=== PATIENT | female | born 1940 | race Caucasian/White ===

== ENCOUNTER 2018-07-24 14:34 | Observation (INO) | payer OTHER ==
--- NOTE | 2018-07-24 15:01 | EDPHY ---
H & P Time Seen by Provider: 07/24/18 14:53 HPI/ROS: Chief complaint. Heart fluttering HPI. Patient is 78-year-old female who presents with near-syncope twice today. She tells me over the past 6-8 months she has noticed that the systolic blood pressure has been elevated. She has been evaluated at [facility] for this. No etiology found or change of treatment found. Over the past [address] she has experienced episodes where her heart seems to flutter and beat quickly for several seconds. The last 2 days she has had episodes where she has been lightheaded to the point where she needs to sit down. Twice today this occurred while she was sitting at a computer. Again she describes her heart is beating fast and fluttering. She denies however chest discomfort, shortness of breath, fever, cough. No abdominal pain or nausea vomiting or diarrhea. No unusual leg pain or swelling. She is quite active normally and does not have symptoms when she is active. She has [facility] insurance but she felt uncomfortable driving to [facility] or sitting in the waiting room at of the [facility] outpatient. ROS 10 systems were reviewed and negative with the exception of the elements mentioned in the history of present illness Past Medical/Surgical History: Past medical history is significant for dyslipidemia Family history both parents had NE and at age 79 Social History: , nonsmoker, no alcohol Smoking Status: Never smoked Physical Exam: General Appearance: Alert well-developed female mild distress. Vital signs are stable. Blood pressure 169/60 Eyes: Pupils equal and round no pallor or injection. ENT, Mouth: Mucous membranes are moist. Respiratory: There are no retractions, lungs are clear to auscultation. Cardiovascular: Regular rate and rhythm. Gastrointestinal: Abdomen is soft and nontender, no masses, bowel sounds normal. Neurological: Awake and alert, sensory and motor exams grossly normal. Skin: Warm and dry, no rashes. Musculoskeletal: Neck is supple nontender. Extremities symmetrical, full range of motion. Psychiatric: Patient is oriented X 3, there is no agitation. Constitutional: Initial Vital Signs Temperature (C) 36.4 C 07/24/18 14:41 Heart Rate 66 07/24/18 14:41 Respiratory Rate 16 07/24/18 14:41 Blood Pressure 169/60 H 07/24/18 14:41 O2 Sat (%) 98 07/24/18 14:41 O2 Delivery Mode Room Air Allergies/Adverse Reactions: Sulfa (Sulfonamide Antibiotics) [Sulfa(Sulfonamide Antibiotics)] Allergy ( Verified 07/24/18 14:41) Home Medications: Medication Instructions Recorded Atorvastatin Calcium [Lipitor 20 20 mg PO DAILY 03/17/12 mg (RX)] Chlorpheniramine Maleate 12 mg PO Q4 PRN 03/17/12 [Chlor-Trimeton Allergy] Glucosamine Sulfate Dipot Chlr 1,000 mg PO DAILY 03/17/12 [Glucosamine] Ibuprofen [Advil] 400 mg PO DAILY PRN 03/17/12 Multivitamins [Multivitamin (OTC)] 1 each PO DAILY 03/17/12 [place]-3 Fatty Acids/Fish Oil [Fish 1 each PO DAILY 03/17/12 Oil 1,000 mg Capsule] Pharmacy Completed See Comment 03/17/12 03/17/12 diphenhydrAMINE [Benadryl 25 MG 25 mg PO HS PRN 03/17/12 (OTC)] Estradiol/Norethindrone Acet 1 each PO DAILY 03/18/12 [Activella 1 Mg-0.5 Mg Tablet] Medical Decision Making - Diagnostics EKG Interpretation: EKG interpreted by me shows normal sinus rhythm normal interval and axis. QRS is normal. There is slight ST depression in the anterior lateral leads as well as inferior leads. There is evidence the atrial flutter with extra P waves in some segments between the QRS complexes. The rate is 60 Imaging Results: Imaging Impressions Chest X-Ray 07/24/18 15:26 Impression: Negative portable chest. Procedures: IV normal saline, monitor ED Course/Re-evaluation: On re-evaluation patient is stable. She and I discussed EKG findings in changes. We discussed lab work. We discussed recommendation for admission. She expresses understanding and agreement Patient has [employer] insurance. I discussed the case with [employer] ECM are fine with keeping the patient here. I consulted discussed case with Dr. Lyn, hospitalist who agrees to the admission Differential Diagnosis: Healthy woman without previous heart problems though strong family history presents with near syncope and EKG findings. Her troponin is 0. There is some suggestion that there could be developing atrial fib/flutter. I considered dysrhythmias as well as acute coronary syndrome. - Data Points Laboratory Results: Laboratory Results 07/24/18 14:55 07/24/18 14:55 07/24/18 07/24/18 07/24/18 14:58 14:55 14:55 WBC 8.56 10^3/uL 10^3/uL (3.80-9.50) RBC 4.91 10^6/uL 10^6/uL (4.18-5.33) Hgb 14.4 g/dL g/dL (12.6-16.3) Hct 44.1 % % (38.0-47.0) MCV 89.8 fL fL (81.5-99.8) MCH 29.3 pg pg (27.9-34.1) MCHC 32.7 g/dL g/dL (32.4-36.7) RDW 13.2 % % (11.5-15.2) Plt Count 270 10^3/uL 10^3/uL (150-400) MPV 10.9 fL fL (8.7-11.7) Neut % (Auto) 61.3 % % (39.3-74.2) Lymph % (Auto) 30.5 % % (15.0-45.0) [place] % (Auto) 5.0 % % (4.5-13.0) Eos % (Auto) 1.9 % % (0.6-7.6) Baso % (Auto) 1.1 % % (0.3-1.7) Nucleat RBC Rel Count 0.0 % % (0.0-0.2) Absolute Neuts (auto) 5.25 10^3/uL 10^3/uL (1.70-6.50) Absolute Lymphs (auto) 2.61 10^3/uL 10^3/uL (1.00-3.00) Absolute Monos (auto) 0.43 10^3/uL 10^3/uL (0.30-0.80) Absolute Eos (auto) 0.16 10^3/uL 10^3/uL (0.03-0.40) Absolute Basos (auto) 0.09 10^3/uL 10^3/uL (0.02-0.10) Absolute Nucleated RBC 0.00 10^3/uL 10^3/uL (0-0.01) Immature Gran % 0.2 % % (0.0-1.1) Immature Gran # 0.02 10^3/uL 10^3/uL (0.00-0.10) Sodium 138 mEq/L mEq/L (135-145) Potassium 3.5 mEq/L mEq/L (3.3-5.0) Chloride 104 mEq/L mEq/L (97-110) Carbon Dioxide 27 mEq/l mEq/l (22-31) Anion Gap 7 mEq/L mEq/L (6-14) BUN 19 mg/dL mg/dL (7-23) Creatinine 0.6 mg/dL mg/dL (0.6-1.0) Estimated GFR > 60 Glucose 142 mg/dL H mg/dL (70-100) Calcium 9.6 mg/dL mg/dL (8.5-10.4) POC Troponin I 0.00 ng/mL ng/mL (0.00-0.08) NT-Pro-B Natriuret Pep 130 pg/mL pg/mL (0-450) Point of Care Test Results: Chemistry 07/24/18 14:58 POC Troponin I 0.00 ng/mL ng/mL (0.00-0.08) Departure - Departure Disposition: [facility] Inpatient Acute Clinical Impression: Near syncope Condition: Fair Referrals: ELDER,KRISTI [Other] - As per Instructions
[2018-07-24 15:37] LABS: PLATELET COUNT 270 10^3/uL (150-400)
--- NOTE | 2018-07-24 16:09 | CPEKG ---
Test Reason : OPEN Blood Pressure : / mmHG Vent. Rate : 060 BPM Atrial Rate : 060 BPM P-R Int : 121 ms QRS Dur : 077 ms QT Int : 420 ms P-R-T Axes : 053 035 029 degrees QTc Int : 420 ms Sinus rhythm Repol abnrm suggests ischemia, anterolateral Confirmed by Agustin Cifuentes ([id number]) on 07/24/2018 4:09:25 PM Referred By: Confirmed By:Agustin Cifuentes
[2018-07-24] MEDS ORDERED: ACETAMINOPHEN 325 MG TAB PO PRN (16:51)
[2018-07-24] MEDS ORDERED: ONDANSETRON DISINTEGRATING 4 MG TAB PO PRN (16:51)
[2018-07-24] MEDS ORDERED: ONDANSETRON 4 MG/2 ML VIAL IVP PRN (16:51)
--- NOTE | 2018-07-24 17:37 | PDGENHP ---
History and Physical - Chief Complaint Acute palpitations - History of Present Illness Primary care provider: Dr. Craft at [facility] Internal Medicine HPI: 78-year-old female presenting with acute palpitations characterized as a fluttering sensation located in her chest with associated lightheadedness and near-syncope. The patient reports the onset of her symptoms approximately 2 weeks ago and they occurred intermittent thereafter. Duration is only is several seconds, and they have occurred mostly at rest. Patient reports that she feels like she is able to alleviate them with deep breathing, but she does endorse that they have been so brief in duration that is somewhat difficult to tell. Over the past 2 days, they have been increasing in frequency and making her feel like she might pass out. On the day of presentation, she experienced some 5-6 times. They have occurred while she has been driving, and she has been particularly worried that she is going to pass out or experienced a heart attack. She denies any overt chest pain or shortness of breath. She does endorse a recent life stressor approximately 1 week ago, with the patient's 's father passing away from what they believed was congestive heart failure or cardiac issue. The patient reports that she regularly engages in physical activity and does not experience any chest pain or the aforementioned symptoms. She reports that on the day of presentation she did not consume any more fluid than coffee in the morning and she had not had anything to eat. She denies any infectious or GI symptoms. History Information - Allergies/Home Medication List Allergies/Adverse Reactions: Sulfa (Sulfonamide Antibiotics) [Sulfa(Sulfonamide Antibiotics)] Allergy ( Verified 07/24/18 17:14) Unknown Home Medications: Ibuprofen [Advil] 400 mg PO Q6H PRN 03/17/12 [Last Taken Unknown] Atorvastatin Calcium [Lipitor 10 mg (*)] 10 mg PO DAILY 07/24/18 [Last Taken 08/31] Glucosamine Sulfate [Glucosamine Sulfate 500 MG (*)] 500 mg PO DAILY 07/24/18 [ Last Taken Unknown] I have personally reviewed and updated: family history, medical history, social history, surgical history - Past Medical History Additional medical history: Closed head injury with concussion and small subarachnoid hemorrhage in 2012. What sounds like H pylori and possible gastritis treated earlier this year. Hyperlipidemia. 6-8 months of elevated home blood pressure readings between 130 and 160, reportedly normal when she has had blood pressure checked at her medical clinic - Surgical History Additional surgical history: Tube ligation. Toe surgery - Family History Additional family history: Both of her parents experienced myocardial infarctions around the age of 79, she does not know if they had any atrial arrhythmias preceding that - Social History Smoking Status: Never smoked Alcohol Use: Occasionally (1 alcoholic beverage nightly) Drug Use: None Additional social history: Patient and her live at [facility], she is physically active at baseline, training horses, ambulating up 3 flights of stairs in their home, but she does not have a scheduled exercise routine Review of Systems Review of Systems: ROS: 10pt was reviewed & negative except for what was stated in HPI & below Cardiac: Reports: lightheadedness, palpitations Physical Exam Physical Exam: Temp Pulse Resp BP Pulse Ox 36.4 C 66 16 169/60 H 98 07/24/18 14:41 07/24/18 14:41 07/24/18 14:41 07/24/18 14:41 07/24/18 14:41 Constitutional: no apparent distress, appears nourished, not in pain Eyes: PERRL, anicteric sclera, EOMI Ears, Nose, Mouth, Throat: moist mucous membranes, hearing normal, ears appear normal, no oral mucosal ulcers Cardiovascular: regular rate and rhythym, no murmur, rub, or gallop, No edema Respiratory: no respiratory distress, no rales or rhonchi, clear to auscultation Gastrointestinal: normoactive bowel sounds, soft, non-tender abdomen, no palpable masses Skin: warm, No abrasion, No rash Neurologic: AAOx3, sensation intact bilaterally, No weakness Psychiatric: not encephalopathic, thought process linear, anxious, No agitated Lab Data & Imaging Review 07/24/18 14:55 07/24/18 14:55 WBC 8.56 10^3/uL (3.80-9.50) 07/24/18 14:55 RBC 4.91 10^6/uL (4.18-5.33) 07/24/18 14:55 Hgb 14.4 g/dL (12.6-16.3) 07/24/18 14:55 Hct 44.1 % (38.0-47.0) 07/24/18 14:55 MCV 89.8 fL (81.5-99.8) 07/24/18 14:55 MCH 29.3 pg (27.9-34.1) 07/24/18 14:55 MCHC 32.7 g/dL (32.4-36.7) 07/24/18 14:55 RDW 13.2 % (11.5-15.2) 07/24/18 14:55 Plt Count 270 10^3/uL (150-400) 07/24/18 14:55 MPV 10.9 fL (8.7-11.7) 07/24/18 14:55 Neut % (Auto) 61.3 % (39.3-74.2) 07/24/18 14:55 Lymph % (Auto) 30.5 % (15.0-45.0) 07/24/18 14:55 [place] % (Auto) 5.0 % (4.5-13.0) 07/24/18 14:55 Eos % (Auto) 1.9 % (0.6-7.6) 07/24/18 14:55 Baso % (Auto) 1.1 % (0.3-1.7) 07/24/18 14:55 Nucleat RBC Rel Count 0.0 % (0.0-0.2) 07/24/18 14:55 Absolute Neuts (auto) 5.25 10^3/uL (1.70-6.50) 07/24/18 14:55 Absolute Lymphs (auto) 2.61 10^3/uL (1.00-3.00) 07/24/18 14:55 Absolute Monos (auto) 0.43 10^3/uL (0.30-0.80) 07/24/18 14:55 Absolute Eos (auto) 0.16 10^3/uL (0.03-0.40) 07/24/18 14:55 Absolute Basos (auto) 0.09 10^3/uL (0.02-0.10) 07/24/18 14:55 Absolute Nucleated RBC 0.00 10^3/uL (0-0.01) 07/24/18 14:55 Immature Gran % 0.2 % (0.0-1.1) 07/24/18 14:55 Immature Gran # 0.02 10^3/uL (0.00-0.10) 07/24/18 14:55 Sodium 138 mEq/L (135-145) 07/24/18 14:55 Potassium 3.5 mEq/L (3.3-5.0) 07/24/18 14:55 Chloride 104 mEq/L (97-110) 07/24/18 14:55 Carbon Dioxide 27 mEq/l (22-31) 07/24/18 14:55 Anion Gap 7 mEq/L (6-14) 07/24/18 14:55 BUN 19 mg/dL (7-23) 07/24/18 14:55 Creatinine 0.6 mg/dL (0.6-1.0) 07/24/18 14:55 Estimated GFR > 60 07/24/18 14:55 Glucose 142 mg/dL (70-100) H 07/24/18 14:55 Calcium 9.6 mg/dL (8.5-10.4) 07/24/18 14:55 POC Troponin I 0.00 ng/mL (0.00-0.08) 07/24/18 14:58 Troponin I < 0.012 ng/mL (0.000-0.034) 07/24/18 14:55 NT-Pro-B Natriuret Pep 130 pg/mL (0-450) 07/24/18 14:55 Visualized and Interpreted Chest x-ray results: Yes Chest X-Ray results: no infiltrate Visualized and Interpreted EKG results: Yes EKG Interpretation: Positive for: other (Normal sinus rhythm with what appeared to be flutter waves at the beginning in and of his EKG conduction, less than [address] depressions) Assessment & Plan Assessment: 78-year-old female presents with acute palpitations Plan: 1. Palpitations. Acute, new problem this provider, further workup indicated. Pervasive least symptomatic, occurring over the past 2 weeks with escalation over the past 48 hr, suspect this is secondary to atrial arrhythmia particularly with what appeared to be flutter waves at the beginning in and of her EKG -reviewed outside records from 03/17/2012 regarding her closed head injury and history and physical by Dr. Mario Hankins, contains an EKG which demonstrates normal sinus rhythm without any ST depressions at baseline -will monitor on telemetry and I have encouraged the patient her to notify the nurses if she is experiencing any symptom recurrence so that we can correlated to the telemetry monitoring -given her subtle ST depressions, will cycle her cardiac enzymes overnight, but I suspect this is most likely a arrhythmia driven as opposed to coronary artery ischemia -check a D-dimer -check a TSH -get an echocardiogram -replete potassium up to 4, rechecking potassium and magnesium in a.m. -hold on cardiology consultation at this time, but if arrhythmia is exhibited, will get cardiology consultation at that time -if all the above unremarkable, would recommend outpatient 30 day event monitor with follow-up at [facility] -reviewed all of the above with the patient her , they are currently in agreement with the plan 2. Elevated blood pressure. Patient reports 60 months of blood pressure readings between 130 and 150, without any elevated blood pressure in her clinic appointments -would recommend 24 hr ambulatory blood pressure monitoring at home if she does not continue to demonstrate blood pressure is elevated greater than 140 -that being said, if her blood pressure is consistently above 140 during this episode of care, I think it is most likely that she has developed a diagnosis of hypertension and would be reasonable to initiate her on a low-dose antihypertensive and discharge with outpatient follow-up her PCP office 3. Hyperlipidemia. Continue statin, encourage aspirin 81 mg daily for primary CAD prevention Diet. Regular Prophylaxis. Moderate risk patient, SCDs, hold pharmacologic in case procedure required tomorrow Code. Full next disposition. Anticipated discharge is 07/25, pending workup of the above. I have discussed patient's presentation with Dr. Agustin Cifuentes, he and I both agree that the patient warrants further investigative workup given likelihood of atrial arrhythmia.
[2018-07-24] MEDS ORDERED: IBUPROFEN 200 MG TAB PO PRN (18:30)
[2018-07-24] MEDS ORDERED: POTASSIUM CL 20 MEQ TAB PO ONE (20:04)
[2018-07-25] MEDS ORDERED: GLUCOSAMINE SULF 500 MG CAP PO SCH (09:00)
[2018-07-25] MEDS ORDERED: ATORVASTATIN CALCIUM 10 MG TAB PO SCH (09:00)
--- NOTE | 2018-07-25 10:03 | ECHO ---
[email or web address] [address] [address] Main: [phone] Fax: Transthoracic Echocardiogram Name: GERTRUDIS VIDES MR#: [id number] Study Date: 07/25/2018 Study Time: 08:38 AM Date of : 1940 Age: 78 year(s) Height: 157.5 cm (62 in.) Weight: 57.15 kg (126 lb.) BSA: 1.57 m2 Gender: Female Examination: Echo Indication: Palpitations Image Quality: Fair Contrast: Requested by: Gino Bravo BP: 124 mmHg/66 mmHg Heart Rate: Rhythm: Normal sinus rhythm Indication: Palpitations Procedure Staff Concessionist: Giovanni Bhardwaj RDCS Reading Physician: Vadim Rocha MD Requesting Provider: Conclusions: Borderline concentric LV hypertrophy. Normal global systolic LV function. EF is 72 %. There is no significant mitral valve regurgitation. There is no aortic valve regurgitation. Measurements: Chambers Valvular Assessment AV/MV Valvular Assessment TV/PV Normal Normal Normal Name Value Range Name Value Range Name Value Range Ao Yanely (MM): 2.3 cm (2.2 cm-3.7 AV Vmax: 1.98 m/s (1 m/s-1.7 PV Vmax: 1.02 m/s (0.6 m/s-0.9 cm) m/s) m/s) IVSd (2D): 0.8 cm (0.6 cm-1.1 AV maxP mmHg ( - ) PV PGmax: 4 mmHg ( - ) cm) LVOT Vmax: 0.95 m/s (0.7 m/s-1.1 LVDd (2D): 3.9 cm (3.9 cm-5.3 m/s) cm) MV E Vmax: 0.63 m/s ( - ) LVDs (2D): 2.4 cm (2.1 cm-4 MV A Vmax: 0.79 m/s ( - ) cm) MV E/A: 0.80 ( - ) LVPWd (2D): 0.9 cm ( - ) LVEF (2D): 72 (>=54 %) Continued Measurements: Chambers Valvular Assessment AV/MV Name Value Name Value LADs Lon.8 cm MV E' Septal: 0.03 m/s LA Area: 14.3 cm2 MV E/E' Septal: 18.90 MV E/E' Lateral: 12.40 Patient: GERTRUDIS VIDES Study Date: 07/25/2018 Page 1 of 2 08:38 AM Findings: Left Ventricle: Normal size left ventricle. Borderline concentric LV hypertrophy. Normal global systolic LV function. EF is 72 %. No regional wall motion abnormality. Normal diastolic LV function. Right Ventricle: Normal size right ventricle. Left Atrium: The left atrium is normal in size. Right Atrium: The right atrium is normal in size. Mitral Valve: The mitral valve is normal in appearance and function. There is no significant mitral valve regurgitation. Aortic Valve: The aortic valve is normal in appearance. The aortic valve is tri-leaflet. There is no aortic valve regurgitation. Tricuspid Valve: The tricuspid valve is normal in appearance and function. Pulmonic Valve: The pulmonic valve is normal in appearance and function. There is no pulmonic regurgitation seen. Aorta: The aorta is normal. Pericardium: No pericardial effusion. (No Signature Object) Patient: GERTRUDIS VIDES Study Date: 07/25/2018 Page 2 of 2 08:38 AM [id number]
--- NOTE | 2018-07-25 11:46 | ASMTCMCOM ---
CM Note CM Note Notes: Pts case discussed in tx rounds. Pt is a 78 y/o female admitted for palpitations. Pt will most likely d/c independent when medically stable. No therapies ordered at this time. CM available for changes. Plan: Independent Date Signed: 07/25/2018 11:45 AM Electronically Signed By:COLLEEN Devlin
[2018-07-25 16:08] VITALS: BP 158/83
--- NOTE | 2018-07-26 05:38 | CPR ---
DATE OF PROCEDURE: 07/25/2018 PROCEDURE: Exercise nuclear stress test. INDICATION: The patient is a 78-year-old female who presented to the hospital complaining of intermi ttent palpitations, as well as lightheadedness and dizziness. She has a long history of palpitations , but they have become more frequent over the last week. She is very active and denies any exertiona l chest discomfort or dyspnea on exertion. Her risk factors for coronary artery disease include hype rlipidemia and an abnormal EKG. PROCEDURE IN DETAIL: Consent was obtained, and the patient was placed on continuous telemetry. Her resting EKG reveals normal sinus rhythm with heart rate of 61, NH interval 125, QRS duration of 74, a nd a QTc of 424. She has diffuse nonspecific ST-T-wave changes at rest. The patient walked on the Smart Voicemailmill for 8 minutes without any associated symptoms. The treadmill was held in the 2nd stage for the last few minutes. She developed [address] depression diffusely, with [address] elevation in aV R. In the recovery phase, her ST depression increased to 1.5 mm in the inferior, anterior, and anter olateral leads. She did reach greater than 85% of her age-predicted maximum heart rate. Her heart r ate peaked at 125 beats per minute. Her blood pressure at rest was 118/80 and peaked at 166/80. Her blood pressure returned to baseline within 2 minutes of recovery. PLAN: Positive exercise treadmill test. Await nuclear images. /[id number]
== END 2018-07-25 18:19 | disposition home or self-care (01) ==
LOC: F2W 18:14
PROVIDERS: ADMIT Internal Medicine; ATTEND Internal Medicine
DX: R55 Syncope and collapse (principal); R00.2 Palpitations
CPT/HCPCS: 71045; 78452; 93005; 93017; 93306; A9500; G0378; 84484-PO